=== PATIENT | female | born 1975 | race Two or more races ===

== ENCOUNTER 2018-03-20 12:41 | Emergency (ER) | payer OTHER ==
[~2018-03-20] VITALS: Ht 167.6 cm; Wt 90.0 kg
[2018-03-20 12:55] VITALS: BP 140/87
== END 2018-03-20 13:17 | disposition left against medical advice (07) ==
LOC: ER 12:47
DX: R53.1 Weakness (principal); I10 Essential (primary) hypertension; E66.9 Obesity, unspecified; Z68.32 Body mass index [BMI] 32.0-32.9, adult
CPT/HCPCS: 99283